=== PATIENT | male | born 1945 | race Caucasian/White ===

== ENCOUNTER 2016-05-22 15:53 | Outpatient (CLI) | payer MEDICARE ==
[2016-05-22 16:12] LABS: #Basophils 0.1 thou/uL (0.0-0.2); #Eosinphils 0.1 thou/uL (0.0-0.7); #Lymphocytes 1.5 thou/uL (1.20-3.40); #Monocytes 0.7 thou/uL (0.11-0.59); #Neutrophils 5.1 thou/uL (1.40-6.50); %Eosinophils 1.6 % (0.0-10.0); %Lymphocytes 20.4 % (21.0-51.0); %Monocytes 9.1 % (0.0-10.0); %Neutrophils 67.9 % (42.0-75.0); Hemoglobin 15.1 g/dL (14.0-18.0); Mean Corpuscular HGB CONC 33.6 g/dL (32.0-36.0); Mean Corpuscular Hemoglobin 30.1 pg (27.0-31.0); Mean Corpuscular Volume 89.5 fl (80.0-94.0); Mean Platelet Volume 7.9 fL (7.4-10.4); Platelet Count 271 thou/uL (130-400); RBC Distribution Width 11.9 % (11.5-14.5); Red Blood Cell (RBC) Count 5.01 mill/uL (4.70-6.10); White Blood Cell (WBC) Count 7.4 thou/uL (4.8-10.8)
[2016-05-22 16:27] LABS: ALT (SGPT) 42 U/L (0-55); AST (SGOT) 22 U/L (5-34); Albumin 4.2 g/dL (3.4-4.8); Alkaline Phosphatase 59 U/L (40-150); Anion Gap 14 mmol/L (10-20); BUN (Urea Nitrogen) 20 mg/dL (8.4-25.7); Bilirubin, Total 0.5 mg/dL (0.2-1.2); Calc. Creatinine Clearance 0 mL/min (70-130); Calcium 9.7 mg/dL (7.8-10.44); Carbon Dioxide 24 mmol/L (23-31); Chloride 105 mmol/L (98-107); Estimated GFR-MDRD 50; Globulin 3.7 g/dL (2.4-3.5); Glucose 101 mg/dL (83-110); Potassium 3.9 mmol/L (3.5-5.1); Protein, Total 7.9 g/dL (5.8-8.1); Sodium 139 mmol/L (136-145)
== END 2016-05-22 15:54 ==
LOC: NAVSJIPCSP 15:53 → NAV LAB 15:54
PROVIDERS: ATTEND Internal Medicine
DX: E78.5 Hyperlipidemia, unspecified (principal); I11.9 Hypertensive heart disease without heart failure; F41.1 Generalized anxiety disorder
CPT/HCPCS: 80053; 84443; 85025

== ENCOUNTER 2016-07-31 08:27 | Outpatient (CLI) | payer MEDICARE ==
[2016-07-31 12:50] LABS: Anion Gap 16 mmol/L (10-20); BUN (Urea Nitrogen) 24 mg/dL (8.4-25.7); Calc. Creatinine Clearance 0 mL/min (70-130); Calcium 9.7 mg/dL (7.8-10.44); Carbon Dioxide 22 mmol/L (23-31); Cardiac Risk 3.7 (Less than 4.5); Chloride 106 mmol/L (98-107); Cholesterol 158 mg/dl (< 200 Desired); Estimated GFR-MDRD 68; Glucose 102 mg/dL (83-110); HDL Cholesterol 43 mg/dL (>60 Neg Risk); LDL Cholesterol, Calculated 95 mg/dL; Potassium 4.2 mmol/L (3.5-5.1); Sodium 140 mmol/L (136-145); Triglycerides 101 mg/dL (Less than 150)
== END 2016-07-31 08:28 | disposition home or self-care (01) ==
LOC: NAVSJIPCSP 08:27
PROVIDERS: ATTEND Internal Medicine
DX: E78.5 Hyperlipidemia, unspecified (principal); I11.9 Hypertensive heart disease without heart failure; Z79.899 Other long term (current) drug therapy
CPT/HCPCS: 36415; 80048; 80061

== ENCOUNTER 2016-10-31 09:37 | Outpatient (CLI) | payer MEDICARE ==
[2016-10-31 12:47] LABS: Cardiac Risk 3.8 (Less than 4.5)
== END 2016-10-31 09:38 | disposition home or self-care (01) ==
LOC: NAVSJIPCSP 09:37
PROVIDERS: ATTEND Internal Medicine
DX: I11.9 Hypertensive heart disease without heart failure (principal); E78.5 Hyperlipidemia, unspecified
CPT/HCPCS: 36415; 80061

== ENCOUNTER 2022-03-01 16:12 | Outpatient (CLI) | payer MEDICARE ==
[~2022-03-01 16:12] MED LIST: Iopamidol 370 76% 100 ML VIAL ONE
== END 2022-03-01 16:13 | disposition home or self-care (01) ==
LOC: NAV RAD 16:12
PROVIDERS: ATTEND Family Medicine
DX: R10.9 Unspecified abdominal pain (principal)
CPT/HCPCS: 74177; Q9967

== ENCOUNTER 2022-10-23 14:49 | Emergency (ER) | payer MEDICARE ==
[2022-10-23] MEDS ORDERED: Lidocaine 1% (PF) 30 ML VIAL ONE (15:05)
== END 2022-10-23 15:35 | disposition home or self-care (01) ==
LOC: NAV ERS 14:49
DX: T16.1XXA Foreign body in right ear, initial encounter (principal); S09.21XA Traumatic rupture of right ear drum, initial encounter; I10 Essential (primary) hypertension; Z79.899 Other long term (current) drug therapy; X58.XXXA Exposure to other specified factors, initial encounter
CPT/HCPCS: 69200; J2001